=== PATIENT | female | born 1960 | race Two or more races ===

== ENCOUNTER 2022-10-01 15:41 | Emergency (ER) | payer MEDICARE, MEDICAID ==
[~2022-10-01] VITALS: Ht 160 cm; Wt 87.0 kg
[2022-10-01 17:06] LABS: Basophils # (auto) 0 10 ^3/uL (0-0.2); Basophils % (auto) 0.7 % (0.0-2.0); Eosinophils # (auto) 0.1 10 ^3/uL (0-0.8); Eosinophils % (auto) 2.8 % (0.0-7.0); Hematocrit 37.1 % (36.0-46.0); Hemoglobin 12.3 g/dL (12.2-16.2); Lymphocytes # (auto) 1.4 10 ^3/uL (0.4-5.4); Lymphocytes % (auto) 34.3 % (10.0-50.0); Mean Corpuscular Hemoglobin 29.9 pg (28.0-32.0); Mean Corpuscular Hgb Conc. 33.2 g/dL (32.0-36.0); Mean Corpuscular Volume 90.1 fL (80.0-100.0); Monocytes # (auto) 0.3 10 ^3/uL (0-1.3); Monocytes % (auto) 8.7 % (0.0-12.0); Neutrophils # (auto) 2.1 10 ^3/uL (1.6-8.6); Neutrophils % (auto) 53.5 % (37.0-80.0); Nucleated Red Blood Cells % 0.2 %; Red Blood Cells 4.12 10^6/uL (4.0-5.20); Red Cell Distribution Width 14.8 % (11.8-14.3)
[2022-10-01 17:30] LABS: Albumin 3.6 g/dL (3.4-5.0); Magnesium 2.9 mg/dL (1.6-2.6); Potassium 3.2 mmol/L (3.5-5.1)
[2022-10-01 17:35] LABS: Bilirubin, Total 0.6 mg/dL (0.2-1.0); Total Protein 7.1 g/dL (6.4-8.2)
[2022-10-01] MEDS ORDERED: POTA10TA51 PO (18:37)
[2022-10-01] MEDS ORDERED: FURO1TAB33 PO (18:37)
[2022-10-01] MEDS ORDERED: POTASSIUM EFFERVESENT TAB 25 MEQ PO ONE (18:45)
[2022-10-01 19:40] VITALS: BP 99/79; PULSE 66; RESP 18; TEMP 97.8; O2SAT 96
== END 2022-10-01 19:43 | disposition home or self-care (01) ==
LOC: EDBD 15:41 → ER 15:41
DX: R60.9 Edema, unspecified (principal); E87.6 Hypokalemia; E11.9 Type 2 diabetes mellitus without complications; R42 Dizziness and giddiness
CPT/HCPCS: 36415; 80053; 83735; 85025; 93005